=== PATIENT | female | born 1965 | race Caucasian/White ===

== ENCOUNTER → 2018-06-28 09:20 | Outpatient (CLI) | payer OTHER, SELFPAY ==
--- NOTE | 2018-06-28 | DI.MG.S_ITS ---
BILATERAL DIGITAL SCREENING MAMMOGRAM 3D/2D WITH CAD: 06/28/2018 CLINICAL: Routine screening. Comparison is made to exams dated: 01/16/2016 mammogram, 03/23/2012 mammogram, and 09/03/2008 mammogram - [facility]. There are scattered fibroglandular elements in both breasts. Current study was also evaluated with a Computer Aided Detection (CAD) system. No significant masses, calcifications, or other findings are seen in either breast. There has been no significant interval change. IMPRESSION: NEGATIVE There is no mammographic evidence of malignancy. A 1 year screening mammogram is recommended. This exam was interpreted at Station ID: [id number]. NOTE: For mammograms, a report in lay terms will be sent to the patient. Approximately 15% of breast malignancies will not be visualized mammographically. In the management of a palpable breast mass, a negative mammogram must not discourage biopsy of a clinically suspicious lesion. Electronically Signed By: Adryan mauro/edilson:06/28/2018 16:39:56 letter sent: Normal Exam ACR BI-RADS Category 1: Negative [id number]
== END ==
PROVIDERS: Visit Provider Obstetrics & Gynecology
DX: Z12.31 Encounter for screening mammogram for malignant neoplasm of breast (principal)
CPT/HCPCS: 77063; 77067

== ENCOUNTER 2019-04-05 19:44 | Emergency (ER) | payer OTHER, SELFPAY ==
[2019-04-05 19:48] VITALS: BP 173/84; PULSE 108; RESP 18; TEMP 37.1; O2SAT 95; BMI 25.8
--- NOTE | 2019-04-05 19:52 | DI.RAD.S_ITS ---
PROCEDURE: XR CHEST 1V INDICATIONS: chest pain TECHNIQUE: One view of the chest was acquired. COMPARISON: None. FINDINGS: Surgical changes and devices: None. Lungs and pleura: Lungs are abnormal with a lateral left lung base pneumonia that is mild in severity and blurs the lateral diaphragm. No pleural effusions or pneumothorax. Mediastinum: Mediastinal contours appear normal. Heart size is normal. Bones and chest wall: No suspicious bony lesions. Overlying soft tissues appear unremarkable. IMPRESSION: Left lower lobe pneumonia blurring the lateral third of the left hemidiaphragm. Dictated by: Keagan Escobar M.D. on 04/05/2019 at 20:12 Approved by: Keagan Escobar M.D. on 04/05/2019 at 20:13
--- NOTE | 2019-04-05 20:06 | ED_ITS ---
HPI - URI/Sore Throat General Chief Complaint: Upper Respiratory Symptoms Stated Complaint: CONGESTION Time Seen by Provider: 04/05/19 20:05 Source: patient Mode of arrival: ambulatory Limitations: no limitations History of Present Illness HPI Narrative: 53-year-old female who 4 weeks ago was in on-call. She states that she started to not feel well with a cough which seems to have worsened over the past 4 weeks. Has been trying [id number] cough and cold preparations with only minimal improvement. No fevers however the past couple days as felt worse. No chest pain. Now has a productive cough Related Data Previous Rx's Medication Instructions Recorded azithromycin 250 mg PO DAILY 4 Days tab 04/05/19 benzonatate [Tessalon Perles] 100 mg PO BID-TID PRN #14 cap 04/05/19 Allergies Allergy/AdvReac Type Severity Reaction Status Date / Time No Known Drug Allergies Allergy Verified 04/05/19 19:52 Review of Systems Constitutional Denies headache(s) and Reports malaise ENT Ears, Nose, Mouth, and Throat: Denies headache(s) Cardiovascular Denies chest pain and Denies dyspnea Respiratory Reports chest congestion, Reports cough and Denies dyspnea Gastrointestinal Gastrointestinal: Denies abdominal pain, Denies nausea and Denies vomiting Genitourinary Denies dysuria Integumentary/Breasts Denies rash Neurologic Denies behavioral changes and Denies headache(s) Psychiatric Denies behavioral changes Hematologic/Lymphatic Denies easy bleeding and Denies easy bruising [facility] Medical History Dry skin (Chronic) Surgical History (Updated 07/20/18 @ 11:38 by Pepper Bhatt LPN) No history of previous surgery (Resolved) Family History (Updated 07/20/18 @ 11:38 by Pepper Bhatt LPN) Father Hypertension Mother Hyperlipidemia Hypertension Social History Smoking Status: Never smoker Family History (Updated 07/20/18 @ 11:38 by Pepper Bhatt LPN) Father Hypertension Mother Hyperlipidemia Hypertension Social History Smoking Status: Never smoker Exam Initial Vital Signs Initial Vital Signs: Vital Signs Temperature 98.7 F 04/05/19 19:48 Pulse Rate 108 H 04/05/19 19:48 Respiratory Rate 18 04/05/19 19:48 Blood Pressure 173/84 H 04/05/19 19:48 Pulse Oximetry 95 04/05/19 19:48 Const General: cooperative, comfortable, well developed, well groomed and No acute distress Orientation: alert, awake and oriented x3 HENMT Head: normal to inspection and normocephalic Resp Effort & Inspection: normal respiratory effort Auscultation: crackles on the left Cardio Rate: tachycardic Rhythm: regular rhythm GI Inspection: non-distended Palpation: soft Skin Lesions: no lesions Rashes: no rashes Neuro General: alert and awake Cognition: normal cognition Gait: normal gait Extrem General: normal to inspection and capillary refill normal Psych Appearance: grossly normal and well kempt Course Orders Ordered: ED Orders 04/05/19 19:52 XR chest 1V Stat EKG-12 Lead Stat 04/05/19 20:02 Complete Blood Count AUTO DIFF Stat Comprehensive Metabolic Panel Stat D Dimer Stat Lipase Stat Partial Thromboplastin Time Stat Prothrombin Time INR Stat Troponin & CK Cardiac Panel Stat Discontinued Medications Azithromycin (Zithromax) 500 mg PO NOW ONE Stop: 04/05/19 20:47 Last Admin: 04/05/19 20:50 Dose: 500 mg Vital Signs - 8 hr 04/05/19 19:48 04/05/19 20:30 04/05/19 21:04 Temperature 98.7 F Pulse Rate 108 H 109 H 90 Respiratory Rate 18 22 20 Blood Pressure 173/84 H 134/78 Blood Pressure [Right Arm] 134/78 Pulse Oximetry 95 93 97 MDM - URI/Sore Throat Lab Data Attestation: I reviewed the patient's lab results. Result diagrams: 04/05/19 20:02 04/05/19 20:02 Lab Results 04/05/19 04/05/19 04/05/19 Range/Units 20:02 20:02 20:02 WBC 9.5 (4.5-11.0) X10^3/uL RBC 4.41 (4.0-5.2) X10^6/uL Hgb 14.4 (12.0-16.0) g/dL Hct 42.7 (36-46) % MCV 96.8 (80-100) fL MCH 32.6 (26-34) PG MCHC 33.7 (30-36) % RDW 12.3 (11.6-14.8) % Plt Count 194 (150-400) X10^3/uL Neut % (Auto) 77.6 H (50-75) % Lymph % (Auto) 13.4 L (25-40) % [place] % (Auto) 8.2 (3-14) % Eos % (Auto) 0.2 L (2-4) % Baso % (Auto) 0.6 (0-2) % Neut # (Auto) 7300 H (8050-7733) /uL Lymph # (Auto) 1300 (7652-0235) /uL [place] # (Auto) 800 (0-900) /uL Eos # (Auto) 0 (0-450) /uL Baso # (Auto) 100 (0-100) /uL PT 11.1 (10.1-12.7) SECONDS INR 1.0 (0.9-1.3) APTT 32 (26.4-36.2) SECONDS D-Dimer (<230) ng/mL Sodium 139 (137-145) mmol/L Potassium 3.9 (3.4-5.1) mmol/L Chloride 101 (98-107) mmol/L Carbon Dioxide 29 (22-32) mmol/L BUN 11 (7-17) mg/dL Creatinine 0.70 (0.52-1.04) mg/dL Estimated GFR > 60.0 (>60) mL/min BUN/Creatinine Ratio 15.7 (6-22) Glucose 106 H (70-100) mg/dL Calcium 10.0 (8.4-10.2) mg/dL Total Bilirubin 1.0 (0.2-1.3) mg/dL AST 38 H (14-36) IU/L ALT 31 (9-52) IU/L Alkaline Phosphatase 88 (38-126) U/L Total Creatine Kinase 87 (30-135) U/L CK-MB (CK-2) TNP CK-MB (CK-2) Rel Index TNP Troponin I < 0.012 (0.01-0.034) ng/mL Total Protein 8.5 H (6.3-8.2) g/dL Albumin 4.7 (3.5-5.0) g/dL Globulin 3.8 (1.7-4.1) g/dL Albumin/Globulin Ratio 1.2 (1.0-2.8) Lipase 124 (23-300) U/L 04/05/19 Range/Units 20:02 WBC (4.5-11.0) X10^3/uL RBC (4.0-5.2) X10^6/uL Hgb (12.0-16.0) g/dL Hct (36-46) % MCV (80-100) fL MCH (26-34) PG MCHC (30-36) % RDW (11.6-14.8) % Plt Count (150-400) X10^3/uL Neut % (Auto) (50-75) % Lymph % (Auto) (25-40) % [place] % (Auto) (3-14) % Eos % (Auto) (2-4) % Baso % (Auto) (0-2) % Neut # (Auto) (0623-0826) /uL Lymph # (Auto) (8499-3879) /uL [place] # (Auto) (0-900) /uL Eos # (Auto) (0-450) /uL Baso # (Auto) (0-100) /uL PT (10.1-12.7) SECONDS INR (0.9-1.3) APTT (26.4-36.2) SECONDS D-Dimer < 200 (<230) ng/mL Sodium (137-145) mmol/L Potassium (3.4-5.1) mmol/L Chloride (98-107) mmol/L Carbon Dioxide (22-32) mmol/L BUN (7-17) mg/dL Creatinine (0.52-1.04) mg/dL Estimated GFR (>60) mL/min BUN/Creatinine Ratio (6-22) Glucose (70-100) mg/dL Calcium (8.4-10.2) mg/dL Total Bilirubin (0.2-1.3) mg/dL AST (14-36) IU/L ALT (9-52) IU/L Alkaline Phosphatase (38-126) U/L Total Creatine Kinase (30-135) U/L CK-MB (CK-2) CK-MB (CK-2) Rel Index Troponin I (0.01-0.034) ng/mL Total Protein (6.3-8.2) g/dL Albumin (3.5-5.0) g/dL Globulin (1.7-4.1) g/dL Albumin/Globulin Ratio (1.0-2.8) Lipase (23-300) U/L Imaging Data Chest x-ray: Radiologist's impression: [address] [address] XRay Report Signed Patient: Gina Fletcher [facility]#: [id number] : 1965Acct:[id number] Age/Sex: 53 / FDate of Service: 04/05/19 Loc: ED Accession Number: [id number] Procedure: XR chest 1V Ordering Provider: Awais Benjamin D.O. PROCEDURE: XR CHEST 1V INDICATIONS: chest pain TECHNIQUE: One view of the chest was acquired. COMPARISON: None. FINDINGS: Surgical changes and devices: None. Lungs and pleura: Lungs are abnormal with a lateral left lung base pneumonia that is mild in severity and blurs the lateral diaphragm. No pleural effusions or pneumothorax. Mediastinum: Mediastinal contours appear normal. Heart size is normal. Bones and chest wall: No suspicious bony lesions. Overlying soft tissues appear unremarkable. IMPRESSION: Left lower lobe pneumonia blurring the lateral third of the left hemidiaphragm. Dictated by: Keagan Escobar M.D. on 04/05/2019 at 20:12 Approved by: Keagan Escobar M.D. on 04/05/2019 at 20:13 ECG Data Attestation: I personally reviewed and interpreted this ECG as follows: Prior ECG tracings: not available for review Interpretation: Sinus tachycardia Ventricular rate of 102 Normal axis Normal QRS Normal QTC No ST T wave changes MDM Narrative Medical decision making narrative: Patient had a negative D-dimer. Tachycardic on the EKG however no other changes. Chest x-ray shows a left lower lobe pneumonia. Patient was given 1st dose of azithromycin here in the emergency department was sent home with prescription for the remainder of the treatment. Hold on a CTA for now. We did discuss [id number] cough and cold preparations. Patient was given return precautions and follow-up instructions. She expressed understanding and agreement plan. Discharge Plan Departure Patient Disposition: Home Clinical Impression: Pneumonia Qualifiers: Pneumonia type: due to unspecified organism Laterality: left Lung location: lower lobe of lung Qualified Code(s): J18.1 - Lobar pneumonia, unspecified organism Discharge Date/Time: 04/05/19 21:05 Interventions: ED Discharge Assessment Last Done: 04/05/19 21:04 Instructions: DI for Pneumonia -- Adult Activity Restrictions/Additional Instructions: Your 1st dose of antibiotics was given here in the emergency department. Your next dose will be on . Take all of your other medications as directed. Return to the emergency department for any new or worsening symptoms. Contact your primary care provider for follow-up. Prescriptions: New azithromycin 250 mg tablet 250 mg PO DAILY 4 Days RF: 0 benzonatate [Tessalon Perles] 100 mg capsule 100 mg PO BID-TID PRN (Reason: cough) Qty: 14 RF: 0 Referrals: Remigio Resendiz MD [Primary Care Provider] -
[2019-04-05 20:10] LABS: Add Manual Diff / Slide Review NO; Basophils Absolute Auto 100 /uL (0-100); Basophils Percent Auto 0.6 % (0-2); Eosinophils Absolute Auto 0 /uL (0-450); Eosinophils Percent Auto 0.2 % (2-4); Hematocrit 42.7 % (36-46); Hemoglobin 14.4 g/dL (12.0-16.0); Lymphocytes Absolute Auto 1300 /uL (1100-4500); Lymphocytes Percent Auto 13.4 % (25-40); Mean Corpuscular HGB Conc 33.7 % (30-36); Mean Corpuscular Hemoglobin 32.6 PG (26-34); Mean Corpuscular Volume 96.8 fL (80-100); Monocytes Absolute Auto 800 /uL (0-900); Monocytes Percent Auto 8.2 % (3-14); Neutrophils Absolute Auto 7300 /uL (1500-7000); Neutrophils Percent Auto 77.6 % (50-75); Platelet Count 194 X10^3/uL (150-400); Red Blood Cell Count 4.41 X10^6/uL (4.0-5.2); Red Cell Distribution Width 12.3 % (11.6-14.8); White Blood Cell Count 9.5 X10^3/uL (4.5-11.0)
[2019-04-05 20:16] LABS: Prothrombin Time 11.1 SECONDS (10.1-12.7)
[2019-04-05 20:19] LABS: PTT Partial Thromboplastin Tim 32 SECONDS (26.4-36.2)
--- NOTE | 2019-04-05 20:19 | PC.NURSE ---
She has crackles in bilateral bases,right clears with cough.
[2019-04-05 20:20] LABS: Alanine Aminotransferase 31 IU/L (9-52); Albumin 4.7 g/dL (3.5-5.0); Albumin Globulin Ratio 1.2 (1.0-2.8); Alkaline Phosphatase 88 U/L (38-126); Aspartate Aminotransferase 38 IU/L (14-36); BUN Creatinine Ratio 15.7 (6-22); Blood Urea Nitrogen 11 mg/dL (7-17); Carbon Dioxide 29 mmol/L (22-32); Chloride 101 mmol/L (98-107); Creatine Kinase 87 U/L (30-135); Estimated Glomerular Filt Rate > 60.0 mL/min (>60); Globulin 3.8 g/dL (1.7-4.1); Glucose 106 mg/dL (70-100); HEMOLYSIS < 15 (0-50); Lipase 124 U/L (23-300); Potassium 3.9 mmol/L (3.4-5.1); Sodium 139 mmol/L (137-145); Total Protein 8.5 g/dL (6.3-8.2)
[2019-04-05 20:28] LABS: D Dimer < 200 ng/mL (<230)
[2019-04-05 20:30] VITALS: BP 134/78; PULSE 109; RESP 22; O2SAT 93
[2019-04-05 20:31] LABS: Troponin I < 0.012 ng/mL (0.01-0.034)
[2019-04-05] MEDS: AZITHROMYCIN 250 MG TABLET 500 MG PO (20:50)
[2019-04-05 21:04] VITALS: BP 134/78; PULSE 90; RESP 20; O2SAT 97
== END 2019-04-05 21:05 | disposition home or self-care (01) ==
PROVIDERS: Emergency Provider Emergency Medicine; Family Provider Obstetrics & Gynecology; PCP Obstetrics & Gynecology
DX: J18.1 Lobar pneumonia, unspecified organism (principal); R00.0 Tachycardia, unspecified
CPT/HCPCS: 36591; 71045; 80053; 82550; 83690; 84484; 85025; 85379; 85610; 85730; 93005; 99283; 99285

== ENCOUNTER 2019-05-08 09:47 | Emergency (ER) | payer OTHER, SELFPAY ==
[2019-05-08 09:50] VITALS: BP 157/91; PULSE 85; RESP 17; TEMP 36.9; O2SAT 100
--- NOTE | 2019-05-08 10:02 | DI.RAD.S_ITS ---
PROCEDURE: XR CHEST 2V INDICATIONS: shortness of breath TECHNIQUE: 2 views of the chest were acquired. COMPARISON: [facility], CR, XR CHEST 1V, 04/05/2019, 19:56. FINDINGS: Surgical changes and devices: None. Lungs and pleura: Lungs are mildly hyperinflated and hyperlucent clear. No pleural effusions or pneumothorax. Mediastinum: Mediastinal contours are normal. Heart size is normal. Bones and chest wall: No suspicious bony abnormalities. Soft tissues appear unremarkable. IMPRESSION: Mild hyperinflation may indicate good inspiratory effort versus air-trapping/asthma, emphysema. No focal consolidation. Dictated by: Marie Tellez M.D. on 05/08/2019 at 9:37 Approved by: Marie Tellez M.D. on 05/08/2019 at 9:38
--- NOTE | 2019-05-08 11:39 | ED.SOB ---
HPI - SOB/Dyspnea General Chief Complaint: Shortness of Breath/Dyspnea Stated Complaint: CHEST PAIN Time Seen by Provider: 05/08/19 11:34 Source: patient Mode of arrival: ambulatory Limitations: no limitations History of Present Illness 53-year-old female comes to the emergency department complaint of chest pain. Patient states that she started having symptoms while she was in [facility]. She had flown there. She had cough and chest pain and shortness of breath. She came back was seen in April by Dr. Benjamin who diagnosed her with pneumonia on chest x-ray. Patient has not had any fevers recently. She has had a little bit of cough but has stopped in the last week. She states that chest pain was originally on the left then moved to the right thumb to the left. She continues to have pain kind of when she coughs, when she sneezes. If she takes in deep inhalation or with movement. She has an appreciated any swelling in her lower extremities or pain in her calves. She has not had any fevers recently. She is quite physically active. She has also traveled back and forth in a vehicle to [place] 5 days ago. She denies any other medical issues, she denies any family history including cardiac, embolic and pulmonary other than her father having hypertension, no prior surgeries. She drinks alcohol occasionally but denies any other illicit or tobacco. Related Data Home Medications Medication Instructions Recorded Confirmed acetaminophen 1 dose PO PRN PRN 05/08/19 05/08/19 multivitamin 1 tab PO DAILY 05/08/19 05/08/19 Allergies Allergy/AdvReac Type Severity Reaction Status Date / Time No Known Drug Allergies Allergy Verified 05/08/19 11:06 Review of Systems Review of Systems ROS Unobtainable: All systems reviewed & are unremarkable except as noted in HPI and below Constitutional Denies chills, Reports fatigue (More tired), Denies fever(s), Denies lethargy and Denies weakness Cardiovascular Reports chest pain, Denies diaphoresis, Denies syncope, Denies rapid heart rate, Denies edema, Denies irregular heart rhythm, Denies lightheadedness, Denies palpitations, Denies dyspnea, Reports dyspnea on exertion (Mild) and Denies orthopnea Respiratory Denies change in phlegm color, Denies chest congestion, Reports cough (Improving), Denies hemoptysis, Reports pain on inspiration, Reports pain with cough, Denies dyspnea, Reports dyspnea on exertion (Mild) and Denies wheezing Gastrointestinal Gastrointestinal: Denies abdominal pain, Denies change in bowel habits, Denies diarrhea, Denies nausea and Denies vomiting Genitourinary Denies hematuria, Denies urinary frequency, Denies dysuria, Denies flank pain, Denies urinary incontinence and Denies urinary urgency Musculoskeletal Reports as per HPI Integumentary/Breasts Denies erythema, Denies rash and Denies unusual bruising Neurologic Denies syncope and Denies weakness Endocrine Reports fatigue (More tired) and Denies palpitations Allergic/Immunologic Denies wheezing [facility] Medical History Dry skin (Chronic) Surgical History No history of previous surgery (Resolved) Family History (Updated 07/20/18 @ 11:38 by Pepper Bhatt LPN) Father Hypertension Mother Hyperlipidemia Hypertension Social History Smoking Status: Never smoker Family History Father Hypertension Mother Hyperlipidemia Hypertension Social History Smoking Status: Never smoker Exam Narrative Exam Narrative: GENERAL: Alert and oriented x three, well-nourished, well-appearing female in no acute distress. HEENT: Head normocephalic, atraumatic, EOMI, pupils reactive, face symmetric, moist mucous membranes NECK: Supple, full range of motion CARDIOVASCULAR: Regular rate and rhythm without murmurs, rubs or gallops. RESPIRATORY: Breath sounds equal bilaterally, no wheezes rales or rhonchi. ABDOMEN: Soft, nontender. Normoactive bowel sounds all 4 quadrants. No guarding or rebound, rigidity, no mass : No CVA tenderness EXTREMITIES: Normal range of motion, no clubbing or edema. Calf circumference is equal. Neurovascularly intact NEUROLOGICAL: Cranial nerves II through XII grossly intact. Moving all extremities, normal gait. SKIN: Warm, dry, no petechiae, no rashes or lesions. Initial Vital Signs Initial Vital Signs: Vital Signs Temperature 98.5 F 05/08/19 09:50 Pulse Rate 85 05/08/19 09:50 Respiratory Rate 17 05/08/19 09:50 Blood Pressure 157/91 H 05/08/19 09:50 Pulse Oximetry 100 05/08/19 09:50 Scores PERC Score Age greater than or equal to 50 years: No Heart rate greater than or equal to 100 bpm: No Room Air O2 Sat less than 95%: No Unilateral leg swelling: No Recent trauma or surgery: No Hemoptysis: No Prior PE or DVT: No Hormone Use: No Total PERC Score: 0 Course Orders Ordered: ED Orders 05/08/19 10:02 XR chest 2V Stat 05/08/19 10:16 EKG-12 Lead Stat 05/08/19 12:20 Complete Blood Count AUTO DIFF Stat Comprehensive Metabolic Panel Stat Partial Thromboplastin Time Stat Prothrombin Time INR Stat Troponin & CK Cardiac Panel Stat 05/08/19 12:55 CT angio chest PE protocol Stat Discontinued Medications Sodium Chloride (Normal Saline 0.9%) 1,000 mls @ 1,000 mls/hr IV BOLUS ONE Stop: 05/08/19 13:05 Last Infusion: 05/08/19 13:58 Dose: 0 mls/hr Admin: 05/08/19 13:01 Dose: 1,000 mls/hr Vital Signs - 8 hr 05/08/19 13:08 05/08/19 13:57 Temperature 98.5 F Pulse Rate 70 77 Respiratory Rate 19 16 Blood Pressure 157/94 H Blood Pressure [Right Arm] 167/80 H Pulse Oximetry 99 98 MDM - SOB/Dyspnea Lab Data Attestation: I reviewed the patient's lab results. Result diagrams: 05/08/19 12:20 05/08/19 12:20 Lab Results 05/08/19 05/08/19 05/08/19 Range/Units 12:20 12:20 12:20 WBC 3.5 L (4.5-11.0) X10^3/uL RBC 4.57 (4.0-5.2) X10^6/uL Hgb 15.0 (12.0-16.0) g/dL Hct 44.3 (36-46) % MCV 96.9 (80-100) fL MCH 32.7 (26-34) PG MCHC 33.8 (30-36) % RDW 12.5 (11.6-14.8) % Plt Count 197 (150-400) X10^3/uL Neut % (Auto) 54.9 (50-75) % Lymph % (Auto) 33.7 (25-40) % [place] % (Auto) 9.6 (3-14) % Eos % (Auto) 0.8 L (2-4) % Baso % (Auto) 1.0 (0-2) % Neut # (Auto) 1900 (7316-6702) /uL Lymph # (Auto) 1200 (6003-5976) /uL [place] # (Auto) 300 (0-900) /uL Eos # (Auto) 0 (0-450) /uL Baso # (Auto) 0 (0-100) /uL PT 10.7 (10.1-12.7) SECONDS INR 0.9 (0.9-1.3) APTT 33 (26.4-36.2) SECONDS Sodium 140 (137-145) mmol/L Potassium 4.1 (3.4-5.1) mmol/L Chloride 100 (98-107) mmol/L Carbon Dioxide 30 (22-32) mmol/L BUN 9 (7-17) mg/dL Creatinine 0.60 (0.52-1.04) mg/dL Estimated GFR > 60.0 (>60) mL/min BUN/Creatinine Ratio 15.0 (6-22) Glucose 96 (70-100) mg/dL Calcium 10.2 (8.4-10.2) mg/dL Total Bilirubin 1.0 (0.2-1.3) mg/dL AST 62 H (14-36) IU/L ALT 44 (9-52) IU/L Alkaline Phosphatase 90 (38-126) U/L Total Creatine Kinase 99 (30-135) U/L CK-MB (CK-2) TNP CK-MB (CK-2) Rel Index TNP Troponin I < 0.012 (0.01-0.034) ng/mL Total Protein 8.8 H (6.3-8.2) g/dL Albumin 5.0 (3.5-5.0) g/dL Globulin 3.8 (1.7-4.1) g/dL Albumin/Globulin Ratio 1.3 (1.0-2.8) Point of Care Testing Test Results Negative Imaging Data Chest x-ray: Radiologist's impression: [address] [address] XRay Report Signed Patient: Gina Fletcher [facility]#: [id number] : 1965Acct:[id number] Age/Sex: 53 / FDate of Service: 05/08/19 Loc: ED Accession Number: [id number] Procedure: XR chest 2V Ordering Provider: Sarahy Gillespie D.O. PROCEDURE: XR CHEST 2V INDICATIONS: shortness of breath TECHNIQUE: 2 views of the chest were acquired. COMPARISON: [facility], , XR CHEST 1V, 04/05/2019, 19:56. FINDINGS: Surgical changes and devices: None. Lungs and pleura: Lungs are mildly hyperinflated and hyperlucent clear. No pleural effusions or pneumothorax. Mediastinum: Mediastinal contours are normal. Heart size is normal. Bones and chest wall: No suspicious bony abnormalities. Soft tissues appear unremarkable. IMPRESSION: Mild hyperinflation may indicate good inspiratory effort versus air-trapping/asthma, emphysema. No focal consolidation. Dictated by: Marie Tellez M.D. on 05/08/2019 at 9:37 Approved by: Marie Tellez M.D. on 05/08/2019 at 9:38 CTA chest: Radiologist's impression: Gina Fletcher 53 F [address] [address] [address] Scan Report Signed Patient: Gina Fletcher [facility]#: [id number] : 1965Acct:[id number] Age/Sex: 53 / FDate of Service: 05/08/19 Loc: ED Accession Number: [id number] Procedure: CT angio chest PE protocol Ordering Provider: Sarahy Gillespie D.O. PROCEDURE: CT ANGIO CHEST PE PROTOCOL INDICATIONS: chest pain, had pna, long distance travel TECHNIQUE: After the administration of intravenous contrast, 2 mm thick sections acquired from the pulmonary apices to the posterior costophrenic angles. 3-dimensional maximum intensity projection (MIP) coronal and sagittal reformats were then acquired through the thorax. For radiation dose reduction, the following was used: automated exposure control, adjustment of mA and/or kV according to patient size. COMPARISON: None. FINDINGS: Image quality: Excellent. Pulmonary arteries: Pulmonary arteries are normal in size, and demonstrate no intraluminal filling defects to suggest central pulmonary embolism. Lungs and pleura: There is small amount of residual interlobular septal thickening and hazy groundglass opacity at the medial posterior left lung base and in the costophrenic sulcus. The lungs are otherwise clear. No pleural effusions or pneumothorax. Central and peripheral airways are patent. Mediastinum: Heart size is normal, without pericardial effusion. No mediastinal or hilar adenopathy. Thoracic aorta is normal in caliber and enhancement. Esophagus is normal in caliber, without hiatal hernia. Bones and chest wall: No suspicious bony lesions. Ribs and thoracic spine appear intact throughout. Thyroid gland is normal. No axillary or supraclavicular adenopathy. Abdomen: 1.9 cm laterally based low density lesion in the right hepatic lobe. Visualized upper abdominal solid organs appear otherwise normal in the early arterial phase of enhancement. IMPRESSION: 1. No pulmonary embolus. 2. Minor residual parenchymal changes, likely postinfectious or inflammatory changes in the retrocardiac costophrenic sulcus. No pleural effusions. 3. Probable cyst or hemangioma in the lateral right lobe of the liver. Dictated by: Marie Tellez M.D. on 05/08/2019 at 12:21 Approved by: Marie Tellez M.D. on 05/08/2019 at 12:30 ECG Data Attestation: I personally reviewed and interpreted this ECG as follows: Interpretation: Sinus rhythm rate of 79 SC 141 QRS 89 and QTC of 441. Patient has clear acute findings. T3 change no other acute changes noted from prior EKG from 04/05/19. [facility] Narrative Medical decision making narrative: 53-year-old female comes in with atypical chest pain, she was treated for pneumonia on chest x-ray which has slowly improved but still had some symptoms still had some diffuse wheezing but that has been improving. She has chest pain that is very atypical. Discussed with patient her only major risk factors are that she trouble the [place] flight and back and forth to [place]. Otherwise she have any other risk factors but patient elected to do CT for evaluation. I was able to perk score her out so we discussed risk benefits, CT is negative does he show some post infectious versus inflammatory changes. Discussed a follow-up in the next week if she continues to have symptoms for some further evaluation with her primary care. Discharge Plan Departure Patient Disposition: Home Clinical Impression: Atypical chest pain, Hepatic cyst Discharge Date/Time: 05/08/19 13:59 Interventions: ED Discharge Assessment Last Done: 05/08/19 13:58 Activity Restrictions/Additional Instructions: Follow-up it with a physician in the next week if her symptoms have not completely resolved. Your CT scan today does not show any pneumonia, there are some residual changes that are likely related to her discomfort and nagging cough. There is no sign of pulmonary embolism. There is a cyst versus hemangioma in the lateral right lobe of the liver. Let her physician know. Return to the emergency department for fevers greater 100.4 F, new shortness of breath, passing out, worsening chest pain or pressure, persistent vomiting, black or bloody stools or other new or concerning symptoms. Prescriptions: No Action multivitamin Tablet 1 tab PO DAILY RF: 0 acetaminophen 325 mg Tablet 1 dose PO PRN PRN (Reason: pain) RF: 0 Referrals: Remigio Resendiz MD [Primary Care Provider] -
--- NOTE | 2019-05-08 11:42 | ED_ITS ---
HPI - SOB/Dyspnea General Chief Complaint: Shortness of Breath/Dyspnea Stated Complaint: CHEST PAIN Time Seen by Provider: 05/08/19 11:34 Source: patient Mode of arrival: ambulatory Limitations: no limitations History of Present Illness 53-year-old female comes to the emergency department complaint of chest pain. Patient states that she started having symptoms while she was in [facility]. She had flown there. She had cough and chest pain and shortness of breath. She came back was seen in April by Dr. Benjamin who diagnosed her with pneumonia on chest x-ray. Patient has not had any fevers recently. She has had a little bit of cough but has stopped in the last week. She states that chest pain was originally on the left then moved to the right thumb to the left. She continues to have pain kind of when she coughs, when she sneezes. If she takes in deep inhalation or with movement. She has an appreciated any swelling in her lower extremities or pain in her calves. She has not had any fevers recently. She is quite physically active. She has also traveled back and forth in a vehicle to [place] 5 days ago. She denies any other medical issues, she denies any family history including cardiac, embolic and pulmonary other than her father having hypertension, no prior surgeries. She drinks alcohol occasionally but denies an y other illicit or tobacco. Related Data Home Medications Medication Instructions Recorded Confirmed acetaminophen 1 dose PO PRN PRN 05/08/19 05/08/19 multivitamin 1 tab PO DAILY 05/08/19 05/08/19 Allergies Allergy/AdvReac Type Severity Reaction Status Date / Time No Known Drug Allergies Allergy Verified 05/08/19 11:06 Review of Systems Review of Systems ROS Unobtainable: All systems reviewed & are unremarkable except as noted in HPI and below Constitutional Denies chills, Reports fatigue (More tired), Denies fever(s), Denies lethargy and Denies weakness Cardiovascular Reports chest pain, Denies diaphoresis, Denies syncope, Denies rapid heart rate, Denies edema, Denies irregular heart rhythm, Denies lightheadedness, Denies palpitations, Denies dyspnea, Reports dyspnea on exertion (Mild) and Denies orthopnea Respiratory Denies change in phlegm color, Denies chest congestion, Reports cough (Improving), Denies hemoptysis, Reports pain on inspiration, Reports pain with cough, Denies dyspnea, Reports dyspnea on exertion (Mild) and Denies wheezing Gastrointestinal Gastrointestinal: Denies abdominal pain, Denies change in bowel habits, Denies diarrhea, Denies nausea and Denies vomiting Genitourinary Denies hematuria, Denies urinary frequency, Denies dysuria, Denies flank pain, Denies urinary incontinence and Denies urinary urgency Musculoskeletal Reports as per HPI Integumentary/Breasts Denies erythema, Denies rash and Denies unusual bruising Neurologic Denies syncope and Denies weakness Endocrine Reports fatigue (More tired) and Denies palpitations Allergic/Immunologic Denies wheezing [facility] Medical History Dry skin (Chronic) Surgical History No history of previous surgery (Resolved) Family History (Updated 07/20/18 @ 11:38 by Pepper Bhatt LPN) Father Hypertension Mother Hyperlipidemia Hypertension Social History Smoking Status: Never smoker Family History Father Hypertension Mother Hyperlipidemia Hypertension Social History Smoking Status: Never smoker Exam Narrative Exam Narrative: GENERAL: Alert and oriented x three, well-nourished, well- appearing female in no acute distress. HEENT: Head normocephalic, atraumatic, EOMI, pupils reactive, face symmetric, moist mucous membranes NECK: Supple, full range of motion CARDIOVASCULAR: Regular rate and rhythm without murmurs, rubs or gallops. RESPIRATORY: Breath sounds equal bilaterally, no wheezes rales or rhonchi. ABDOMEN: Soft, nontender. Normoactive bowel sounds all 4 quadrants. No guarding or rebound, rigidity, no mass : No CVA tenderness EXTREMITIES: Normal range of motion, no clubbing or edema. Calf circumference is equal. Neurovascularly intact NEUROLOGICAL: Cranial nerves II through XII grossly intact. Moving all extremities, normal gait. SKIN: Warm, dry, no petechiae, no rashes or lesions. Initial Vital Signs Initial Vital Signs: Vital Signs Temperature 98.5 F 07/08/19 09:50 Pulse Rate 85 07/08/19 09:50 Respiratory Rate 17 05/08/19 09:50 Blood Pressure 157/91 H 05/08/19 09:50 Pulse Oximetry 100 05/08/19 09:50 Scores PERC Score Age greater than or equal to 50 years: No Heart rate greater than or equal to 100 bpm: No Room Air O2 Sat less than 95%: No Unilateral leg swelling: No Recent trauma or surgery: No Hemoptysis: No Prior PE or DVT: No Hormone Use: No Total PERC Score: 0 Course Orders Ordered: ED Orders 05/08/19 10:02 XR chest 2V Stat 05/08/19 10:16 EKG-12 Lead Stat 05/08/19 12:20 Complete Blood Count AUTO DIFF Stat Comprehensive Metabolic Panel Stat Partial Thromboplastin Time Stat Prothrombin Time INR Stat Troponin & CK Cardiac Panel Stat 05/08/19 12:55 CT angio chest PE protocol Stat Discontinued Medications Sodium Chloride (Normal Saline 0.9%) 1,000 mls @ 1,000 mls/hr IV BOLUS ONE Stop: 05/08/19 13:05 Last Infusion: 05/08/19 13:58 Dose: 0 mls/hr Admin: 05/08/19 13:01 Dose: 1,000 mls/hr Vital Signs - 8 hr 05/08/19 13:08 05/08/19 13:57 Temperature 98.5 F Pulse Rate 70 77 Respiratory Rate 19 16 Blood Pressure 157/94 H Blood Pressure [Right Arm] 167/80 H Pulse Oximetry 99 98 MDM - SOB/Dyspnea Lab Data Attestation: I reviewed the patient's lab results. Result diagrams: 05/08/19 12:20 05/08/19 12:20 Lab Results 05/08/19 05/08/19 05/08/19 Range/Units 12:20 12:20 12:20 WBC 3.5 L (4.5-11.0) X10^3/uL RBC 4.57 (4.0-5.2) X10^6/uL Hgb 15.0 (12.0-16.0) g/dL Hct 44.3 (36-46) % MCV 96.9 (80-100) fL MCH 32.7 (26-34) PG MCHC 33.8 (30-36) % RDW 12.5 (11.6-14.8) % Plt Count 197 (150-400) X10^3/uL Neut % (Auto) 54.9 (50-75) % Lymph % (Auto) 33.7 (25-40) % [place] % (Auto) 9.6 (3-14) % Eos % (Auto) 0.8 L (2-4) % Baso % (Auto) 1.0 (0-2) % Neut # (Auto) 1900 (9450-3965) /uL Lymph # (Auto) 1200 (9220-5154) /uL [place] # (Auto) 300 (0-900) /uL Eos # (Auto) 0 (0-450) /uL Baso # (Auto) 0 (0-100) /uL PT 10.7 (10.1-12.7) SECONDS INR 0.9 (0.9-1.3) APTT 33 (26.4-36.2) SECONDS Sodium 140 (137-145) mmol/L Potassium 4.1 (3.4-5.1) mmol/L Chloride 100 (98-107) mmol/L Carbon Dioxide 30 (22-32) mmol/L BUN 9 (7-17) mg/dL Creatinine 0.60 (0.52-1.04) mg/dL Estimated GFR > 60.0 (>60) mL/min BUN/Creatinine Ratio 15.0 (6-22) Glucose 96 (70-100) mg/dL Calcium 10.2 (8.4-10.2) mg/dL Total Bilirubin 1.0 (0.2-1.3) mg/dL AST 62 H (14-36) IU/L ALT 44 (9-52) IU/L Alkaline Phosphatase 90 (38-126) U/L Total Creatine Kinase 99 (30-135) U/L CK-MB (CK-2) TNP CK-MB (CK-2) Rel Index TNP Troponin I < 0.012 (0.01-0.034) ng/mL Total Protein 8.8 H (6.3-8.2) g/dL Albumin 5.0 (3.5-5.0) g/dL Globulin 3.8 (1.7-4.1) g/dL Albumin/Globulin Ratio 1.3 (1.0-2.8) Point of Care Testing Test Results Negative Imaging Data Chest x-ray: Radiologist's impression: [address] [address] XRay Report Signed Patient: Gina Fletcher [facility]#: [id number] : 1965Acct:[id number] Age/Sex: 53 / FDate of Service: 05/08/19 Loc: ED Accession Number: [id number] Procedure: XR chest 2V Ordering Provider: Sarahy Gillespie D.O. PROCEDURE: XR CHEST 2V INDICATIONS: shortness of breath TECHNIQUE: 2 views of the chest were acquired. COMPARISON: [facility], , XR CHEST 1V, 04/05/2019, 19:56. FINDINGS: Surgical changes and devices: None. Lungs and pleura: Lungs are mildly hyperinflated and hyperlucent clear. No ple ural effusions or pneumothorax. Mediastinum: Mediastinal contours are normal. Heart size is normal. Bones and chest wall: No suspicious bony abnormalities. Soft tissues appear unremarkable. IMPRESSION: Mild hyperinflation may indicate good inspiratory effort versus air-trapping/asthma, emphysema. No focal consolidation. Dictated by: Marie Tellez M.D. on 05/08/2019 at 9:37 Approved by: Marie Tellez M.D. on 05/08/2019 at 9:38 CTA chest: Radiologist's impression: Gina Fletcher 53 F [address] [address] [address] Scan Report Signed Patient: Gina Fletcher [facility]#: [id number] : 1965Acct:[id number] Age/Sex: 53 / FDate of Service: 05/08/19 Loc: ED Accession Number: [id number] Procedure: CT angio chest PE protocol Ordering Provider: Sarahy Gillespie D.O. PROCEDURE: CT ANGIO CHEST PE PROTOCOL INDICATIONS: chest pain, had pna, long distance travel TECHNIQUE: After the administration of intravenous contrast, 2 mm thick sections acquired from the pulmonary apices to the posterior costophrenic angles. 3-dimensional maximum intensity projection (MIP) coronal and sagittal reformats were then acquired through the thorax. For radiation dose reduction, the following was used: automated exposure control, adjustment of mA and/or kV according to patient size. COMPARISON: None. FINDINGS: Image quality: Excellent. Pulmonary arteries: Pulmonary arteries are normal in size, and demonstrate no intraluminal filling defects to suggest central pulmonary embolism. Lungs and pleura: There is small amount of residual interlobular septal thickening and hazy groundglass opacity at the medial posterior left lung base and in the costophrenic sulcus. The lungs are otherwise clear. No pleural effusions or pneumothorax. Central and peripheral airways are patent. Mediastinum: Heart size is normal, without pericardial effusion. No mediastinal or hilar adenopathy. Thoracic aorta is normal in caliber and enhancement. Esophagus is normal in caliber, without hiatal hernia. Bones and chest wall: No suspicious bony lesions. Ribs and thoracic spine appear intact throughout. Thyroid gland is normal. No axillary or supraclavicular adenopathy. Abdomen: 1.9 cm laterally based low density lesion in the right hepatic lobe. Visualized upper abdominal solid organs appear otherwise normal in the early arterial phase of enhancement. IMPRESSION: 1. No pulmonary embolus. 2. Minor residual parenchymal changes, likely postinfectious or inflammatory changes in the retrocardiac costophrenic sulcus. No pleural effusions. 3. Probable cyst or hemangioma in the lateral right lobe of the liver. Dictated by: Marie Tellez M.D. on 05/08/2019 at 12:21 Approved by: Marie Tellez M.D. on 05/08/2019 at 12:30 ECG Data Attestation: I personally reviewed and interpreted this ECG as follows: Interpretation: Sinus rhythm rate of 79 [place] 141 QRS 89 and QTC of 441. Patient has clear acute findings. T3 change no other acute changes noted from prior EKG from 04/05/19. [facility] Narrative Medical decision making narrative: 53-year-old female comes in with atypical chest pain, she was treated for pneumonia on chest x-ray which has slowly improved but still had some symptoms still had some diffuse wheezing but that has been improving. She has chest pain that is very atypical. Discussed with patient her only major risk factors are that she trouble the [place] flight and back and forth to [place]. Otherwise she have any other risk factors but patient elected to do CT for evaluation. I was able to perk score her out so we discussed risk benefits, CT is negative does he show some post infectious versus inflammatory changes. Discussed a follow-up in the next week if she continues to have symptoms for some further evaluation with her primary care. Discharge Plan Departure Patient Disposition: Home Clinical Impression: Atypical chest pain, Hepatic cyst Discharge Date/Time: 05/08/19 13:59 Interventions: ED Discharge Assessment Last Done: 05/08/19 13:58 Activity Restrictions/Additional Instructions: Follow-up it with a physician in the next week if her symptoms have not completely resolved. Your CT scan today does not show any pneumonia, there are some residual changes that are likely related to her discomfort and nagging cough. There is no sign of pulmonary embolism. There is a cyst versus hemangioma in the lateral right lobe of the liver. Let her physician know. Return to the emergency department for fevers greater 100.4 F, new shortness of breath, passing out, worsening chest pain or pressure, persistent vomiting, black or bloody stools or other new or concerning symptoms. Prescriptions: No Action multivitamin Tablet 1 tab PO DAILY RF: 0 acetaminophen 325 mg Tablet 1 dose PO PRN PRN (Reason: pain) RF: 0 Referrals: Remigio Resendiz MD [Primary Care Provider] -
[2019-05-08 12:27] LABS: Add Manual Diff / Slide Review NO; Basophils Absolute Auto 0 /uL (0-100); Eosinophils Absolute Auto 0 /uL (0-450); Eosinophils Percent Auto 0.8 % (2-4); Hematocrit 44.3 % (36-46); Lymphocytes Absolute Auto 1200 /uL (1100-4500); Lymphocytes Percent Auto 33.7 % (25-40); Mean Corpuscular HGB Conc 33.8 % (30-36); Mean Corpuscular Hemoglobin 32.7 PG (26-34); Mean Corpuscular Volume 96.9 fL (80-100); Monocytes Absolute Auto 300 /uL (0-900); Monocytes Percent Auto 9.6 % (3-14); Neutrophils Absolute Auto 1900 /uL (1500-7000); Neutrophils Percent Auto 54.9 % (50-75); Platelet Count 197 X10^3/uL (150-400); Red Blood Cell Count 4.57 X10^6/uL (4.0-5.2); Red Cell Distribution Width 12.5 % (11.6-14.8); White Blood Cell Count 3.5 X10^3/uL (4.5-11.0)
[2019-05-08 12:32] LABS: INR 0.9 (0.9-1.3); Prothrombin Time 10.7 SECONDS (10.1-12.7)
[2019-05-08 12:34] LABS: PTT Partial Thromboplastin Tim 33 SECONDS (26.4-36.2)
[2019-05-08 12:39] LABS: Alanine Aminotransferase 44 IU/L (9-52); Albumin Globulin Ratio 1.3 (1.0-2.8); Alkaline Phosphatase 90 U/L (38-126); Aspartate Aminotransferase 62 IU/L (14-36); Blood Urea Nitrogen 9 mg/dL (7-17); Calcium 10.2 mg/dL (8.4-10.2); Carbon Dioxide 30 mmol/L (22-32); Chloride 100 mmol/L (98-107); Creatine Kinase 99 U/L (30-135); Estimated Glomerular Filt Rate > 60.0 mL/min (>60); Globulin 3.8 g/dL (1.7-4.1); Glucose 96 mg/dL (70-100); HEMOLYSIS 18 (0-50); Potassium 4.1 mmol/L (3.4-5.1); Sodium 140 mmol/L (137-145); Total Protein 8.8 g/dL (6.3-8.2)
[2019-05-08 12:50] LABS: Troponin I < 0.012 ng/mL (0.01-0.034)
--- NOTE | 2019-05-08 12:55 | DI.CT.S_ITS ---
PROCEDURE: CT ANGIO CHEST PE PROTOCOL INDICATIONS: chest pain, had pna, long distance travel TECHNIQUE: After the administration of intravenous contrast, 2 mm thick sections acquired from the pulmonary apices to the posterior costophrenic angles. 3-dimensional maximum intensity projection (MIP) coronal and sagittal reformats were then acquired through the thorax. For radiation dose reduction, the following was used: automated exposure control, adjustment of mA and/or kV according to patient size. COMPARISON: None. FINDINGS: Image quality: Excellent. Pulmonary arteries: Pulmonary arteries are normal in size, and demonstrate no intraluminal filling defects to suggest central pulmonary embolism. Lungs and pleura: There is small amount of residual interlobular septal thickening and hazy groundglass opacity at the medial posterior left lung base and in the costophrenic sulcus. The lungs are otherwise clear. No pleural effusions or pneumothorax. Central and peripheral airways are patent. Mediastinum: Heart size is normal, without pericardial effusion. No mediastinal or hilar adenopathy. Thoracic aorta is normal in caliber and enhancement. Esophagus is normal in caliber, without hiatal hernia. Bones and chest wall: No suspicious bony lesions. Ribs and thoracic spine appear intact throughout. Thyroid gland is normal. No axillary or supraclavicular adenopathy. Abdomen: 1.9 cm laterally based low density lesion in the right hepatic lobe. Visualized upper abdominal solid organs appear otherwise normal in the early arterial phase of enhancement. IMPRESSION: 1. No pulmonary embolus. 2. Minor residual parenchymal changes, likely postinfectious or inflammatory changes in the retrocardiac costophrenic sulcus. No pleural effusions. 3. Probable cyst or hemangioma in the lateral right lobe of the liver. Dictated by: Marie Tellez M.D. on 05/08/2019 at 12:21 Approved by: Marie Tellez M.D. on 05/08/2019 at 12:30
[2019-05-08] MEDS: SODIUM CHLORIDE 0.9% 1,000 ML 1000 ML IV (13:01)
[2019-05-08 13:08] VITALS: BP 167/80; PULSE 70; RESP 19; TEMP 36.9; O2SAT 99
[2019-05-08 13:57] VITALS: BP 157/94; PULSE 77; RESP 16; O2SAT 98
== END 2019-05-08 13:59 | disposition home or self-care (01) ==
PROVIDERS: Emergency Provider Emergency Medicine; Family Provider Obstetrics & Gynecology; PCP Obstetrics & Gynecology
DX: R07.9 Chest pain, unspecified (principal); K76.89 Other specified diseases of liver
CPT/HCPCS: 36591; 71046; 71275; 80053; 81025; 82550; 84484; 85025; 85610; 85730; 93005; 93041; 96360; 99285; Q9967

== ENCOUNTER → 2020-10-14 10:24 | Outpatient (CLI) | payer OTHER, SELFPAY ==
--- NOTE | 2020-10-14 | DI.MG.S_ITS ---
BILATERAL DIGITAL SCREENING MAMMOGRAM 3D/2D WITH CAD: 10/14/2020 CLINICAL: Routine screening. Comparison is made to exams dated: 06/28/2018 mammogram - [facility], 01/16/2016 mammogram, and 03/23/2012 mammogram - [facility]. There are scattered fibroglandular elements in both breasts. Current study was also evaluated with a Computer Aided Detection (CAD) system. There are benign calcifications in the left breast. There is a mole marker on the left breast. No significant masses, calcifications, or other findings are seen in either breast. There has been no significant interval change. IMPRESSION: BENIGN There is no mammographic evidence of malignancy. A 1 year screening mammogram is recommended. This exam was interpreted at Station ID: [id number]. NOTE: For mammograms, a report in lay terms will be sent to the patient. Approximately 15% of breast malignancies will not be visualized mammographically. In the management of a palpable breast mass, a negative mammogram must not discourage biopsy of a clinically suspicious lesion. Electronically Signed By: Alejandro Quintero acr/edilson:10/14/2020 11:05:34 letter sent: Normal Exam ACR BI-RADS Category 2: Benign Finding(s) 3342F
== END ==
PROVIDERS: Family Provider Obstetrics & Gynecology; PCP Internal Medicine; Referring Provider Internal Medicine; Visit Provider Internal Medicine
DX: Z12.31 Encounter for screening mammogram for malignant neoplasm of breast (principal)
CPT/HCPCS: 77063; 77067

== ENCOUNTER 2022-12-03 18:15 | Emergency (ER) | payer OTHER, SELFPAY ==
[2022-12-03] VITALS (7 sets, daily range): BP systolic 161–181; BP diastolic 82–91; PULSE 75–78; RESP 16; TEMP 36.6; O2SAT 99–100; BMI 28.6
--- NOTE | 2022-12-03 18:56 | DI.CT.S_ITS ---
PROCEDURE: CT KIDNEY URETER BLADDER (KUB) INDICATIONS: right flank pain TECHNIQUE: Axial sections were acquired from the lung bases to the pubic symphysis. Coronal and sagittal reformats were performed. For radiation dose reduction, the following was used: automated exposure control, adjustment of mA and/or kV according to patient size. COMPARISON: None. FINDINGS: Image quality: Excellent. Lung bases: Unremarkable. Heart: No significant findings. URINARY: Right Kidney: Diffuse right renal enlargement and moderate perinephric inflammation. Moderate hydronephrosis. No intrarenal calculi. Right Ureter: No hydroureter or ureteral calcifications. Left Kidney: No stones or hydronephrosis. Left Ureter: No hydroureter. Bladder: Normal wall thickness. No stones. ABDOMEN: Liver: Thin-walled gently lobulated well-circumscribed hypodensity laterally in the right hepatic lobe measuring 2 cm. No other visible liver lesions. Gallbladder: Normal CT appearance. Biliary ducts: Nondilated. Pancreas: Normal. Spleen: Normal size. Adrenal Glands: No nodules. Stomach and Bowel: Stomach, small bowel loops, and colon are unremarkable. Normal appendix. Peritoneum: No abnormal intraperitoneal fluid. No free air. Ventral Wall: No hernia. Abdominal Nodes: No enlarged retroperitoneal or mesenteric lymph nodes. Vessels: Aorta and inferior vena cava are normal in size. Retro aortic left renal vein. PELVIS: Pelvic Organs: Uterus and ovarian tissue is a grossly normal noncontrast CT appearance. Pelvic Nodes: Unremarkable. Miscellaneous: No inguinal hernias are seen. Bones: Multilevel degenerative disc change in the lower thoracic and lumbar spine. IMPRESSION: 1. Acute moderate right hydronephrosis with perinephric inflammation. No visible obstructing calcification suggests ureteropelvic junction obstruction due to non radiodense stone, soft tissue, clot, inflammation, or crossing vessel. This could also be sequelae of recently passed stone however there is no evidence of hydroureter or periureteric inflammation. 2. Incidental note made of probably benign hepatic hypodensity. Dictated by: Marie Tellez M.D. on 12/03/2022 at 19:20 Approved by: Marie Tellez M.D. on 12/03/2022 at 19:25
[2022-12-03 19:01] LABS: Add Manual Diff / Slide Review NO; Basophils Absolute Auto 0 /uL (0-100); Basophils Percent Auto 0.5 % (0-2); Eosinophils Absolute Auto 0 /uL (0-450); Eosinophils Percent Auto 0.1 % (2-4); Hematocrit 39.5 % (36-46); Hemoglobin 13.4 g/dL (12.0-16.0); Lymphocytes Absolute Auto 700 /uL (1100-4500); Lymphocytes Percent Auto 7.2 % (25-40); Mean Corpuscular Hemoglobin 32.5 PG (26-34); Mean Corpuscular Volume 95.5 fL (80-100); Monocytes Absolute Auto 800 /uL (0-900); Monocytes Percent Auto 7.8 % (3-14); Neutrophils Absolute Auto 8300 /uL (1500-7000); Neutrophils Percent Auto 84.4 % (50-75); Platelet Count 179 X10^3/uL (150-400); Red Blood Cell Count 4.13 X10^6/uL (4.0-5.2); Red Cell Distribution Width 12.7 % (11.6-14.8); White Blood Cell Count 9.8 X10^3/uL (4.5-11.0)
[2022-12-03] MEDS: KETOROLAC 30 MG/ML VIAL 15 MG IV (19:01)
[2022-12-03] MEDS: ONDANSETRON 4 MG/2 ML INJ IV (19:01)
[2022-12-03 19:14] LABS: Alanine Aminotransferase 20 IU/L (<35); Albumin 4.6 g/dL (3.5-5.0); Albumin Globulin Ratio 1.5 (1.0-2.8); Alkaline Phosphatase 70 U/L (38-126); Aspartate Aminotransferase 26 IU/L (14-36); BUN Creatinine Ratio 19.1 (6-22); Bilirubin Total 0.7 mg/dL (0.2-1.3); Blood Urea Nitrogen 13 mg/dL (7-17); Calcium 9.4 mg/dL (8.4-10.2); Carbon Dioxide 24 mmol/L (22-32); Chloride 100 mmol/L (98-107); Estimated Glomerular Filt Rate > 60 mL/min (>60); Globulin 3.1 g/dL (1.7-4.1); Glucose 126 mg/dL (70-100); HEMOLYSIS < 15 (0-50); Lipase 59 U/L (23-300); Potassium 3.8 mmol/L (3.4-5.1); Sodium 134 mmol/L (137-145); Total Protein 7.7 g/dL (6.3-8.2)
[2022-12-03] MEDS: SODIUM CHLORIDE 0.9% 1,000 ML 1000 ML IV (19:23)
[2022-12-03 19:43] LABS: Amorphous Sediment Urine 1+; Bacteria Urine Many (>30); Culture Indicated Urine Specimen Cultured; Mucus Urine 1+ (Negative); RBC Urine 1-5/HPF (0-5/HPF); Squamous Epithelial Cell Urine 0-1 /HPF (0-5/HPF); WBC Urine 30-100/HPF (0-5/HPF)
[2022-12-03] MEDS: cefTRIAXone 1,000 MG in SODIUM CHLORIDE 0.9% 100 ML 200 MG IV (20:15)
--- NOTE | 2022-12-03 20:30 | ED.FEMALEGU ---
HPI - Female Genitourinary General Chief complaint: Urogenital-Female Stated complaint: Severe back/stomach pain, Vomiting Time Seen by Provider: 12/03/22 19:27 Source: patient Mode of arrival: Ambulatory History of Present Illness HPI Narrative: Patient is a 57-year-old healthy female who presents with right-sided back pain. She reports that they just got back from [place] they were there for awhile helping take care of her 's mother. She is been feeling fine she was on an airplane for awhile today she started noticing some right back pain. It then started radiating around to her front. It was waxing and waning and now it is pretty constant. She took Tylenol and Advil this morning. She denies any nausea vomiting. She does have a very remote history of 1 kidney stone in the past. She denies any fever no painful or frequent urination Related Data Home Medications Medication Instructions Recorded Confirmed acetaminophen 325 mg tablet 1 dose PO PRN PRN pain 05/08/19 05/08/19 multivitamin 1 tab PO DAILY 05/08/19 05/08/19 Previous Rx's Medication Instructions Recorded cephalexin 500 mg capsule 500 mg PO BID 7 days #14 caps 12/03/22 Allergies Allergy/AdvReac Type Severity Reaction Status Date / Time No Known Drug Allergies Allergy Verified 12/03/22 18:13 Review of Systems Review of Systems ROS Unobtainable: All systems reviewed & are unremarkable except as noted in HPI and below Patient History Medical History (Updated 12/03/22 @ 20:52 by Clara Meadows DO) Dry skin Surgical History No history of previous surgery Family History Father Hypertension Mother Hyperlipidemia Hypertension alcohol intake frequency: 3 or more drinks per day Substance Use Type: does not use Exam Initial Vital Signs Initial Vital Signs: Vital Signs Temperature 98 F 12/03/22 18:22 Pulse Rate 76 12/03/22 18:22 Respiratory Rate 16 12/03/22 18:22 Blood Pressure 181/91 H 12/03/22 18:22 Pulse Oximetry 100 12/03/22 18:22 Oxygen Delivery Method 12/03/22 18:22 GENERAL: Alert pleasant 87-year-old female no acute distress HEENT: Head atraumatic,EOMI, pupils reactive, face symmetric, moist mucous membranes CARDIOVASCULAR: Regular rate and rhythm without murmurs, rubs or gallops. RESPIRATORY: Breath sounds equal bilaterally, no wheezes rales or rhonchi. ABDOMEN: Soft, minimal right lower quadrant tenderness no guarding no rebound abdomen is soft and nondistended : Mild right CVA tenderness EXTREMITIES: Normal range of motion, no clubbing or edema. Neurovascularly intact NEUROLOGICAL: Alert and oriented x4. SKIN: Warm, dry, no laceration, no petechiae, no rashes or lesions. Course Orders Ordered: ED Orders 12/03/22 18:44 EKG-12 Lead Stat 12/03/22 18:53 Complete Blood Count AUTO DIFF Stat Comprehensive Metabolic Panel Stat Lipase Stat Procalcitonin Stat 12/03/22 18:56 CT kidney ureter bladder (KUB) Stat 12/03/22 19:25 Urine Culture Stat Urine Microscopic Stat Discontinued Medications Acetaminophen (Acetaminophen 325 Mg Tablet) 975 mg PO NOW ONE Stop: 12/03/22 20:50 Last Admin: 12/03/22 21:06 Dose: Not Given Documented By: LUPE Sodium Chloride (Normal Saline 0.9%) 1,000 mls @ 1,000 mls/hr IV BOLUS ONE Stop: 12/03/22 19:55 Last Infusion: 12/03/22 20:20 Dose: 0 mls/hr Documented By: Admin: 12/03/22 19:23 Dose: 1,000 mls/hr Documented By: AT Ceftriaxone Sodium 1,000 mg/ (Sodium Chloride) 100 mls @ 200 mls/hr IV NOW ONE Stop: 12/03/22 19:55 Last Infusion: 12/03/22 20:50 Dose: 0 mls/hr Documented By: Admin: 12/03/22 20:15 Dose: 200 mls/hr Documented By: AT Ketorolac Tromethamine (Ketorolac 30 Mg/Ml Vial) 15 mg IV NOW ONE Stop: 12/03/22 18:57 Last Admin: 12/03/22 19:01 Dose: 15 mg Documented By: AT Ondansetron HCl (Ondansetron 4 Mg/2 Ml Inj) 4 mg IV NOW PRN PRN Reason: Nausea And Vomiting Last Admin: 12/03/22 19:01 Dose: 4 mg Documented By: AT Vital Signs Vital signs: Vital Signs - 8 hr 12/03/22 18:22 12/03/22 19:14 12/03/22 19:27 Temperature 98 F Pulse Rate 76 76 76 Respiratory Rate 16 Blood Pressure 181/91 H Pulse Oximetry 100 100 99 Oxygen Delivery Method Room Air 12/03/22 19:27 12/03/22 19:30 12/03/22 19:30 Temperature Pulse Rate 75 Respiratory Rate Blood Pressure 176/82 H 161/83 H Pulse Oximetry 100 Oxygen Delivery Method Room Air 12/03/22 20:00 12/03/22 20:19 12/03/22 20:30 Temperature Pulse Rate 78 Respiratory Rate Blood Pressure 168/88 H Pulse Oximetry 99 99 Oxygen Delivery Method MDM - Female Genitourinary Lab Data 12/03/22 18:53 12/03/22 18:53 Labs: Lab Results 12/03/22 12/03/22 12/03/22 Range/Units 18:53 18:53 18:53 WBC 9.8 (4.5-11.0) X10^3/uL RBC 4.13 (4.0-5.2) X10^6/uL Hgb 13.4 (12.0-16.0) g/dL Hct 39.5 (36-46) % MCV 95.5 (80-100) fL MCH 32.5 (26-34) PG MCHC 34.0 (30-36) % RDW 12.7 (11.6-14.8) % Plt Count 179 (150-400) X10^3/uL Neut % (Auto) 84.4 H (50-75) % Lymph % (Auto) 7.2 L (25-40) % Rooks % (Auto) 7.8 (3-14) % Eos % (Auto) 0.1 L (2-4) % Baso % (Auto) 0.5 (0-2) % Neut # (Auto) 8300 H (9056-2503) /uL Lymph # (Auto) 700 L (5047-4463) /uL Rooks # (Auto) 800 (0-900) /uL Eos # (Auto) 0 (0-450) /uL Baso # (Auto) 0 (0-100) /uL Sodium 134 L (137-145) mmol/L Potassium 3.8 (3.4-5.1) mmol/L Chloride 100 (98-107) mmol/L Carbon Dioxide 24 (22-32) mmol/L BUN 13 (7-17) mg/dL Creatinine 0.68 (0.52-1.04) mg/dL Estimated GFR > 60 (>60) mL/min BUN/Creatinine Ratio 19.1 (6-22) Glucose 126 H (70-100) mg/dL Calcium 9.4 (8.4-10.2) mg/dL Total Bilirubin 0.7 (0.2-1.3) mg/dL AST 26 (14-36) IU/L ALT 20 (<35) IU/L Alkaline Phosphatase 70 (38-126) U/L Total Protein 7.7 (6.3-8.2) g/dL Albumin 4.6 (3.5-5.0) g/dL Globulin 3.1 (1.7-4.1) g/dL Albumin/Globulin Ratio 1.5 (1.0-2.8) Lipase 59 (23-300) U/L Procalcitonin 0.04 (<0.5) ng/mL Urine RBC (0-5/HPF) Urine WBC (0-5/HPF) Ur Squamous Epith Cells (0-5/HPF) Amorphous Sediment Urine Bacteria (None) Urine Mucus (Negative) Ur Culture Indicated? 12/03/22 Range/Units 19:25 WBC (4.5-11.0) X10^3/uL RBC (4.0-5.2) X10^6/uL Hgb (12.0-16.0) g/dL Hct (36-46) % MCV (80-100) fL MCH (26-34) PG MCHC (30-36) % RDW (11.6-14.8) % Plt Count (150-400) X10^3/uL Neut % (Auto) (50-75) % Lymph % (Auto) (25-40) % Rooks % (Auto) (3-14) % Eos % (Auto) (2-4) % Baso % (Auto) (0-2) % Neut # (Auto) (3264-6735) /uL Lymph # (Auto) (7990-7608) /uL Rooks # (Auto) (0-900) /uL Eos # (Auto) (0-450) /uL Baso # (Auto) (0-100) /uL Sodium (137-145) mmol/L Potassium (3.4-5.1) mmol/L Chloride (98-107) mmol/L Carbon Dioxide (22-32) mmol/L BUN (7-17) mg/dL Creatinine (0.52-1.04) mg/dL Estimated GFR (>60) mL/min BUN/Creatinine Ratio (6-22) Glucose (70-100) mg/dL Calcium (8.4-10.2) mg/dL Total Bilirubin (0.2-1.3) mg/dL AST (14-36) IU/L ALT (<35) IU/L Alkaline Phosphatase (38-126) U/L Total Protein (6.3-8.2) g/dL Albumin (3.5-5.0) g/dL Globulin (1.7-4.1) g/dL Albumin/Globulin Ratio (1.0-2.8) Lipase (23-300) U/L Procalcitonin (<0.5) ng/mL Urine RBC 1-5/hpf (0-5/HPF) Urine WBC 30-100/hpf H (0-5/HPF) Ur Squamous Epith Cells 0-1 /hpf (0-5/HPF) Amorphous Sediment 1+ Urine Bacteria Many (>30) H (None) Urine Mucus 1+ H (Negative) Ur Culture Indicated? Specimen cultured Imaging Data CT scan - abdomen/pelvis: Radiologist's Impression: CT Scan Report Signed Patient: Gina Fletcher MR#: [id number] : 1965 Acct:[id number] Age/Sex: 57 / F Date of Service: 12/03/22 Loc: ED Accession Number: [id number] ?? Procedure: CT kidney ureter bladder (KUB) Ordering Provider: Clara Meadows D.O. PROCEDURE:? CT KIDNEY URETER BLADDER (KUB) ? INDICATIONS:? right flank pain ? TECHNIQUE:? Axial sections were acquired from the lung bases to the pubic symphysis.? Coronal and sagittal reformats were performed.? For radiation dose reduction, the following was used: ?automated exposure control, adjustment of mA and/or kV according to patient size.? ? COMPARISON:? None. ? FINDINGS:? Image quality:? Excellent.? ? Lung bases:? Unremarkable.? ? Heart:? No significant findings. ? URINARY: Right Kidney:? Diffuse right renal enlargement and moderate perinephric inflammation.? Moderate hydronephrosis.? No intrarenal calculi.? Right Ureter:? No hydroureter or ureteral calcifications.? ? Left Kidney: ? No stones or hydronephrosis. Left Ureter:? No hydroureter.? ? Bladder:? Normal wall thickness. No stones. ? ? ? ABDOMEN: Liver:? Thin-walled gently lobulated well-circumscribed hypodensity laterally in the right hepatic lobe measuring 2 cm.? No other visible liver lesions. Gallbladder:? Normal CT appearance. Biliary ducts:? Nondilated. Pancreas:? Normal. Spleen:? Normal size. Adrenal Glands:? No nodules. ? Stomach and Bowel:? Stomach, small bowel loops, and colon are unremarkable.? Normal appendix. Peritoneum:? No abnormal intraperitoneal fluid.? No free air.? ? Ventral Wall: ? No hernia.? Abdominal Nodes:? No enlarged retroperitoneal or mesenteric lymph nodes.? Vessels:? Aorta and inferior vena cava are normal in size.? Retro aortic left renal vein. ? PELVIS: Pelvic Organs:? Uterus and ovarian tissue is a grossly normal noncontrast CT appearance. Pelvic Nodes: Unremarkable. Miscellaneous: No inguinal hernias are seen. ? ? ? Bones:? Multilevel degenerative disc change in the lower thoracic and lumbar spine. ? IMPRESSION:? ? 1. Acute moderate right hydronephrosis with perinephric inflammation.? No visible obstructing calcification suggests ureteropelvic junction obstruction due to non radiodense stone, soft tissue, clot, inflammation, or crossing vessel.? This could also be sequelae of recently passed stone however there is no evidence of hydroureter or periureteric inflammation. ? 2. Incidental note made of probably benign hepatic hypodensity.? Dictated by: Marie Tellez M.D. on 12/03/2022 at 19:20 ? ? [facility] Narrative Medical decision making narrative: Patient is a healthy 57-year-old female who presents with right flank and back pain. He is found to have a UTI and pyelonephritis. She is afebrile without leukocytosis or signs of sepsis. She does have many bacteria leukocytes in her urine with perinephric stranding and possible recently passed stone, however not definite. She is feeling significantly better after Toradol and Tylenol. She does not want anything stronger at home for pain. She is given 1 dose of Rocephin here in the ED along with prescription for Keflex to continue antibiotics. Discharge Plan Departure Patient Disposition: Home Clinical Impression: UTI (urinary tract infection) Qualifiers: Urinary tract infection type: acute pyelonephritis Qualified Code(s): N10 - Acute pyelonephritis Instructions: DI for Kidney Infection Activity Restrictions/Additional Instructions: *You have been diagnosed with kidney infection *What to do: At this time blood work is overall reassuring. However you do have a kidney infection causing her pain. There no evidence of kidney stone. *Continue to take medications as directed Motrin 600 mg every 6 hours if needed for [id number] pain Tylenol 650 mg every 6 hours if needed for fple-ja-[id number] pain Keflex 500 mg twice a day for 7 days *Follow up with your primary care provider in 2-3 days or call [phone] *Return to ER if you should have increasing pain nausea vomiting or any new, worsening or concerning symptoms Prescriptions: New cephalexin 500 mg capsule 500 mg PO BID 7 Days Qty: 14 0RF No Action multivitamin Tablet 1 tab PO DAILY acetaminophen 325 mg Tablet 1 dose PO PRN PRN (Reason: pain) Label Comments: 05/08/19 patient states taken a lot lately due to chest pain Referrals: Ruddy,Doctor, [Primary Care Provider] - Stand Alone Forms: Patient Portal/API
[2022-12-03 21:38] LABS: Procalcitonin 0.04 ng/mL (<0.5)
== END 2022-12-03 21:05 | disposition home or self-care (01) ==
PROVIDERS: Emergency Provider Emergency Medicine; Family Provider Obstetrics & Gynecology
DX: N10 Acute pyelonephritis (principal); Z87.442 Personal history of urinary calculi
CPT/HCPCS: 36415; 74176; 80053; 81015; 83690; 84145; 85025; 87077; 87086; 87186; 93005; 96365; 96375; 99284; J0696; J1885; J2405

== ENCOUNTER → 2022-12-21 08:27 | Outpatient (CLI) | payer OTHER, SELFPAY ==
--- NOTE | 2022-12-21 | DI.MG.S_ITS ---
BILATERAL DIGITAL SCREENING MAMMOGRAM 3D/2D WITH CAD: 12/21/2022 CLINICAL: Routine screening. Comparison is made to exams dated: 10/14/2020 mammogram, 06/28/2018 mammogram - [facility], and 01/16/2016 mammogram - [facility]. There are scattered areas of fibroglandular density in both breasts (category b / 25%-50% glandular tissue). Current study was also evaluated with a Computer Aided Detection (CAD) system. There are benign calcifications in the left breast. There is a mole marker on the left breast. No significant masses, calcifications, or other findings are seen in either breast. There has been no significant interval change. IMPRESSION: BENIGN There is no mammographic evidence of malignancy. A 1 year screening mammogram is recommended. Based on the Tyrer Cuzick model (a risk assessment model) the patient's lifetime risk is 4.6% and her 10 year risk is 1.5%. According to the ACR, ACS, and NCCN guidelines, an annual breast MRI exam along with mammogram is recommended if the patient's lifetime risk is 20% or greater. This exam was interpreted at Station ID: [id number]. NOTE: For mammograms, a report in lay terms will be sent to the patient. Approximately 15% of breast malignancies will not be visualized mammographically. In the management of a palpable breast mass, a negative mammogram must not discourage biopsy of a clinically suspicious lesion. Electronically Signed By: Alejandro farley/edilson:12/21/2022 09:02:10 letter sent: Normal Exam ACR BI-RADS Category 2: Benign Finding(s) 3342F
== END ==
PROVIDERS: Family Provider Obstetrics & Gynecology; PCP Family Medicine; Referring Provider Family Medicine; Visit Provider Family Medicine
DX: Z12.31 Encounter for screening mammogram for malignant neoplasm of breast (principal)
CPT/HCPCS: 77063; 77067

== ENCOUNTER → 2023-01-05 15:05 | Outpatient (CLI) | payer OTHER, SELFPAY ==
--- NOTE | 2023-01-05 15:05 | DI.US.S_ITS ---
PROCEDURE: US ABDOMEN LIMITED INDICATIONS: palpable mass RUQ TECHNIQUE: Real-time scanning was performed of the right upper quadrant. COMPARISON: None. FINDINGS: Targeted ultrasound of the right upper quadrant demonstrates no sonographic mass. However, there is severe right-sided hydronephrosis. The right kidney measures 12.7 centimeters. No obstructing stone visualized. IMPRESSION: Severe right-sided hydronephrosis. Obstructing stone is not excluded, but not seen. Consider CT. Dictated by: Zach Gonzalez M.D. on 01/05/2023 at 17:02 Approved by: Zach Gonzalez M.D. on 01/05/2023 at 17:03
== END ==
PROVIDERS: Family Provider Obstetrics & Gynecology; PCP Family Medicine; Referring Provider Nurse Practitioner Family; Visit Provider Nurse Practitioner Family
DX: N13.30 Unspecified hydronephrosis (principal); R19.01 Right upper quadrant abdominal swelling, mass and lump
CPT/HCPCS: 76705

== ENCOUNTER → 2023-01-06 08:35 | Outpatient (CLI) | payer OTHER, SELFPAY ==
[2023-01-06 09:04] LABS: Hematocrit 36.4 % (36-46); Hemoglobin 12.4 g/dL (12.0-16.0); Mean Corpuscular HGB Conc 33.9 % (30-36); Mean Corpuscular Hemoglobin 31.8 PG (26-34); Mean Corpuscular Volume 93.8 fL (80-100); Platelet Count 300 X10^3/uL (150-400); Red Blood Cell Count 3.89 X10^6/uL (4.0-5.2); White Blood Cell Count 6.1 X10^3/uL (4.5-11.0)
[2023-01-06 09:28] LABS: Alanine Aminotransferase 15 IU/L (<35); Albumin 4.2 g/dL (3.5-5.0); Albumin Globulin Ratio 1.1 (1.0-2.8); Alkaline Phosphatase 87 U/L (38-126); Aspartate Aminotransferase 22 IU/L (14-36); BUN Creatinine Ratio 14.1 (6-22); Bilirubin Total 0.7 mg/dL (0.2-1.3); Blood Urea Nitrogen 12 mg/dL (7-17); Calcium 9.1 mg/dL (8.4-10.2); Carbon Dioxide 30 mmol/L (22-32); Chloride 98 mmol/L (98-107); Estimated Glomerular Filt Rate > 60 mL/min (>60); Globulin 3.7 g/dL (1.7-4.1); Glucose 95 mg/dL (70-100); HEMOLYSIS < 15 (0-50); Potassium 4.5 mmol/L (3.4-5.1); Sodium 136 mmol/L (137-145); Total Protein 7.9 g/dL (6.3-8.2)
== END ==
PROVIDERS: Family Provider Obstetrics & Gynecology; PCP Family Medicine; Referring Provider Nurse Practitioner Family; Visit Provider Nurse Practitioner Family
DX: R19.00 Intra-abdominal and pelvic swelling, mass and lump, unspecified site (principal)
CPT/HCPCS: 36415; 80053; 85027

== ENCOUNTER → 2023-01-11 12:23 | Outpatient (CLI) | payer OTHER, SELFPAY ==
--- NOTE | 2023-01-11 | DI.NM.S_ITS ---
PROCEDURE: NM RENAL FUNCTION W LASIX RADIOPHARMACEUTICAL: 10 mCi Tc-99m MAG3 IV and 40 mg furosemide IV. INDICATIONS: Unspecified hydronephrosis TECHNIQUE: The patient was hydrated orally before the examination was begun. After intravenous administration of Tc-99m MAG3, posterior abdominal radionuclide angiogram and sequential (1 minute each frame) renal images were obtained. A time-activity curve for each kidney was generated and analyzed. To evaluate for obstruction, the patient was given 40 mg furosemide via slow intravenous injection after the start of the examination. Sequential images were obtained for up to an additional 20 minutes. COMPARISON: [facility], US, US ABDOMEN LIMITED, 01/05/2023, 15:34. [facility], CT, CT KIDNEY URETER BLADDER (KUB), 12/03/2022, 19:03. FINDINGS: Perfusion: There is normal vascular flow to both kidneys. Morphology: Right Kidney is hypertrophied in relation to the left with marked hydronephrosis as previously identified. Function: Both kidneys demonstrate normal cortical tracer uptake, with [id number] activity ranging from 3 to 5 minutes. The right kidney contributes 16.4 % of total renal function. The left kidney contributes 83.6 % of total renal function. Lasix stimulation: After diuretic administration, there is prompt clearance of tracer activity from the renal collecting systems in both kidneys. The half-time of emptying of tracer activity from the right pelvicaliceal system is 13 minutes. The half-time of emptying from the left pelvicaliceal system is 3 minutes. Normal emptying half-times are less than 10 minutes; borderline ranges are from 10 to 20 minutes. IMPRESSION: Marked asymmetric renal function with the left kidney comprising 83.6% of total renal function. Right hydronephrosis. Increased emptying half time on the right at 13 minutes, normal less than 10 minutes. Dictated by: Aspen Razo M.D. on 01/11/2023 at 16:49 Approved by: Aspen Raoz M.D. on 01/11/2023 at 16:52
== END ==
PROVIDERS: Family Provider Obstetrics & Gynecology; PCP Family Medicine; Referring Provider Nurse Practitioner Family; Visit Provider Nurse Practitioner Family
DX: N13.30 Unspecified hydronephrosis (principal)
CPT/HCPCS: 78708; A9562

== ENCOUNTER → 2023-12-30 09:29 | Outpatient (CLI) | payer OTHER, SELFPAY ==
--- NOTE | 2023-12-30 09:30 | DI.MG.S_ITS ---
BILATERAL DIGITAL SCREENING MAMMOGRAM 3D/2D WITH CAD: 12/30/2023 CLINICAL: Routine screening. Comparison is made to exams dated: 12/21/2022 mammogram, 10/14/2020 mammogram, and 06/28/2018 mammogram - [facility]. There are scattered areas of fibroglandular density in both breasts (category b / 25%-50% glandular tissue). Current study was also evaluated with a Computer Aided Detection (CAD) system. No significant masses, calcifications, or other findings are seen in either breast. There has been no significant interval change. IMPRESSION: NEGATIVE There is no mammographic evidence of malignancy. A 1 year screening mammogram is recommended. Based on the Tyrer Cuzick model (a risk assessment model) the patient's lifetime risk is 4.5% and her 10 year risk is 1.6%. According to the ACR, ACS, and NCCN guidelines, an annual breast MRI exam along with mammogram is recommended if the patient's lifetime risk is 20% or greater. This exam was interpreted at Station ID: [id number]. NOTE: For mammograms, a report in lay terms will be sent to the patient. Approximately 15% of breast malignancies will not be visualized mammographically. In the management of a palpable breast mass, a negative mammogram must not discourage biopsy of a clinically suspicious lesion. Electronically Signed By: Larry goel/edilson:12/30/2023 10:52:54 letter sent: Normal Exam ACR BI-RADS Category 1: Negative 3341F
== END ==
LOC: MAMMO 09:29
PROVIDERS: Family Provider Obstetrics & Gynecology; PCP Family Medicine; Referring Provider Family Medicine; Visit Provider Family Medicine
DX: Z12.31 Encounter for screening mammogram for malignant neoplasm of breast (principal); R92.323 Mammographic fibroglandular density, bilateral breasts
CPT/HCPCS: 77063; 77067

== ENCOUNTER → 2025-03-16 14:17 | Outpatient (CLI) | payer OTHER, SELFPAY ==
--- NOTE | 2025-03-16 14:17 | DI.MG.S_ITS ---
MM screening mammo BI: 03/16/2025. BI-RADS: 1 CLINICAL: 59-year old female for bilateral screening mammogram. Tyrer-Cuzick lifetime risk of 6.3%. No personal or first-degree family history of breast cancer. PRIOR EXAMS 12/30/2023, 12/21/2022, 10/14/2020, 06/28/2018. MAMMOGRAPHY TECHNIQUE: 2D and 3D (tomosynthesis) digital mammographic views obtained, with additional images as needed for full coverage. Current study was also evaluated with a Computer Aided Detection (CAD) system. DENSITY B. There are scattered areas of fibroglandular density. MAMMOGRAPHY FINDINGS Bilateral: No suspicious mass, asymmetry, microcalcification, or other abnormality seen. IMPRESSION: * No evidence of malignancy. RECOMMENDATIONS Bilateral * Annual screening mammography. OVERALL ASSESSMENT CATEGORY BI-RADS-1: Negative. The [employer] recommends annual screening mammography beginning at age 40 for women with average risk of breast cancer. ELECTRONICALLY SIGNED: Jasmin Browning M.D. on 03/19/2025 at 02:02:54 AM PT Interpreting Station ID: [id number]
== END ==
PROVIDERS: Family Provider Obstetrics & Gynecology; PCP Family Medicine; Referring Provider Family Medicine; Visit Provider Family Medicine
DX: Z12.31 Encounter for screening mammogram for malignant neoplasm of breast (principal)
CPT/HCPCS: 77063; 77067